=== PATIENT | male | born 1955 | race Caucasian/White ===

== ENCOUNTER → 2020-04-07 | Outpatient (CLI) | payer BC ==
[~2020-04-07] MED LIST: ATORVASTATIN CA20 MG PO; BRILINTA 90 MG90 MG PO; CARDIZEM CD240 MG PO; COZAAR25 MG PO; ECOTRIN81 MG PO; IMDUR ER TAB 3030 MG PO; METOPROLOL TART25 MG PO; VITAMIN D250000 UNIT PO
[2020-04-07 09:03] LABS: HEMOGLOBIN 15.6 gm/dl (14.0-17.5); RED BLOOD COUNT 5.13 M/UL (4.20-5.50); WHITE BLOOD COUNT 7.9 K/UL (4.5-11.0)
[2020-04-07 09:22] LABS: BUN/CREATININE RATIO 18 (0-10)
== END ==
LOC: LAB 08:26
DX: I10 Essential (primary) hypertension (principal); I25.10 Atherosclerotic heart disease of native coronary artery without angina pectoris; E78.5 Hyperlipidemia, unspecified; Z95.5 Presence of coronary angioplasty implant and graft
CPT/HCPCS: 36415; 80053; 80061; 85025

== ENCOUNTER → 2020-06-16 | Outpatient (CLI) | payer BC ==
[2020-06-16 09:23] LABS: HEMOGLOBIN 15.5 gm/dl (14.0-17.5); RED BLOOD COUNT 5.37 M/UL (4.20-5.50); WHITE BLOOD COUNT 8.3 K/UL (4.5-11.0)
[2020-06-16 10:47] LABS: BUN/CREATININE RATIO 17 (0-10)
[2020-06-17 08:13] LABS: RHEUMATOID ARTHRITIS FACTOR <10.0 IU/mL (0.0-13.9); VITAMIN D, 25-HYDROXY 74.6 ng/mL (30.0-100.0)
== END ==
LOC: LAB 08:25
PROVIDERS: Family Medicine
DX: Z12.5 Encounter for screening for malignant neoplasm of prostate (principal); E78.5 Hyperlipidemia, unspecified; I10 Essential (primary) hypertension; E55.9 Vitamin D deficiency, unspecified; Z13.89 Encounter for screening for other disorder; Z13.828 Encounter for screening for other musculoskeletal disorder
CPT/HCPCS: 36415; 80053; 80061; 84153; 84439; 84443; 84550; 85027; 85652; 86038; 86431

== ENCOUNTER → 2020-07-04 | Outpatient (CLI) | payer BC ==
[2020-07-05 07:11] LABS: COMPLEMENT C3, SERUM 135 mg/dL (82-167); COMPLEMENT C4, SERUM 22 mg/dL (12-38)
[2020-07-05 13:15] LABS: ANTI-CENTROMERE B ANTIBODIES <0.2 AI (0.0-0.9); ANTISCLERODERMA-70 ANTIBODIES <0.2 AI (0.0-0.9); RNP ANTIBODIES <0.2 AI (0.0-0.9); SJOGREN'S ANTI-SS-A <0.2 AI (0.0-0.9); SJOGREN'S ANTI-SS-B <0.2 AI (0.0-0.9); SMITH ANTIBODIES <0.2 AI (0.0-0.9)
[2020-07-06 13:15] LABS: ANTIHISTONE ANTIBODIES 0.8 Units (0.0-0.9)
== END ==
LOC: LAB 10:23
PROVIDERS: Nurse Practitioner Family
DX: M25.561 Pain in right knee (principal)
CPT/HCPCS: 36415; 73562; 83520; 86038; 86160; 86235

== ENCOUNTER → 2021-03-06 | Outpatient (CLI) | payer OTHER ==
[2021-03-07 08:12] LABS: CHOLESTEROL, TOTAL 190 mg/dL (100-199); HDL CHOLESTEROL 45 mg/dL (>39); LDL CHOLESTEROL CALC 128 mg/dL (0-99); LDL/HDL RATIO 2.8 ratio (0.0-3.6); T. CHOL/HDL RATIO 4.2 ratio (0.0-5.0); TRIGLYCERIDES 95 mg/dL (0-149)
== END ==
LOC: LAB 08:26
PROVIDERS: Internal Medicine Cardiovascular Disease
DX: I25.10 Atherosclerotic heart disease of native coronary artery without angina pectoris (principal); E78.5 Hyperlipidemia, unspecified; I10 Essential (primary) hypertension; R06.02 Shortness of breath
CPT/HCPCS: 36415; 80061

== ENCOUNTER → 2021-06-22 | Outpatient (CLI) | payer OTHER | LOC: LAB 08:43 | DX: I25.10 Atherosclerotic heart disease of native coronary artery without angina pectoris (principal); R53.83 Other fatigue; E78.5 Hyperlipidemia, unspecified; I10 Essential (primary) hypertension; I95.9 Hypotension, unspecified; R06.02 Shortness of breath; R07.89 Other chest pain | CPT/HCPCS: 36415; 80061; 80076 ==